=== PATIENT | male | born 1950 | race Asian ===

== ENCOUNTER 2019-05-31 12:51 | Day surgery (SDC) | payer MEDICARE, OTHER ==
[~2019-05-31] VITALS: Ht 157.5 cm; Wt 68.9 kg
[2019-05-31 15:14] VITALS: Ht 157.5 cm; Wt 68.9 kg
[2019-05-31] MEDS ORDERED: ATORVASTATIN (15:19)
[2019-05-31] MEDS ORDERED: TAMSULOSIN (15:19)
[2019-05-31 16:11] VITALS: BP 134/84; PULSE 60; RESP 16
--- NOTE | 2019-05-31 16:24 | PREAC ---
Date/Time of Note Date/Time of Note DATE: 05/31/19 TIME: 16:23 Anesthesia Eval and Record Evaluation Time Pre-Procedure Interview DATE: 05/31/19 TIME: 16:23 Age 68 Sex male NPO: 8 hrs Preoperative diagnosis colon screening Planned procedure colonoscopy Past Medical History Past Medical History: Includes Cardio: Dyslipidemia Renal: BPH Surgery & Anesthesia Issues No known issue Meds Anticoagulation: No Beta Brennan within 24 hr: No Reason Beta Brennan not given: Pt. not on B-Brennan Reported Medications [Atorvastatin] No Conflict Check 05/31/19 [Tamsulosin] No Conflict Check 05/31/19 Meds reviewed: Yes Allergies Coded Allergies: Penicillins (Verified Allergy, Intermediate, Hives, 05/31/19) ampicillin (Verified Allergy, Intermediate, Hives, 05/31/19) Allergies Reviewed: Yes Labs/Studies Labs Reviewed: Other (NA) test: N/A Pre-procedure Exam Last vitals Vital Signs Date Temp Pulse Resp B/P (MAP) Pulse Ox O2 O2 Flow FiO2 Time Delivery Rate 05/31/19 97.6 60 16 134/84 98 Room Air 16:11 (101) Airway: Adequate mouth opening Mallampati: Mallampati II Teeth: Normal Lung: Normal Heart: Normal ASA Physical Status ASA physical status: 2 Emergency: None Planned Anesthetic General/MAC: MAC Pre-operative Attestations Prior to commencing anesthesia and surgery, the patient was re-evaluated, there was verification of: *The patient's identity *The results of appropriate recent lab work and preoperative vital signs *The above evaluation not changing prior to induction *Anesthetic plan, risk benefits, alternative and complications discussed with patient/family; questions answered; patient/family understands, accepts and wishes to proceed. VERONICA FORBES May 31, 2019 16:24
[2019-05-31] MEDS ORDERED: PROPOFOL 40 ML ONE (17:39)
[2019-05-31 17:41] VITALS: BP 116/74; PULSE 61; RESP 18
--- NOTE | 2019-05-31 17:42 | PAC ---
Date/Time of Note Date/Time of Note DATE: 05/31/19 TIME: 17:42 Post-Anesthesia Notes Post-Anesthesia Note Last documented vital signs Vital Signs Date Temp Pulse Resp B/P (MAP) Pulse Ox O2 O2 Flow FiO2 Time Delivery Rate 05/31/19 97.6 60 16 134/84 98 Room Air 16:11 (101) Activity: WNL Respiratory function: WNL Cardiovascular function: WNL Mental status: Baseline Pain reasonably controlled: Yes Hydration appropriate: Yes Nausea/Vomiting absent: Yes JACQUELINE FINLEY MD May 31, 2019 17:42
== END 2019-05-31 19:27 | disposition home or self-care (01) ==
LOC: GIL 12:51
PROVIDERS: ATTEND Internal Medicine Gastroenterology
DX: Z12.11 Encounter for screening for malignant neoplasm of colon (principal); K64.8 Other hemorrhoids; E78.5 Hyperlipidemia, unspecified